=== PATIENT | male | born 1945 | race Caucasian/White ===

== ENCOUNTER 2019-06-29 04:38 | Emergency (ER) | payer MEDICARE, OTHER ==
[~2019-06-29] VITALS: Ht 162.6 cm; Wt 54.4 kg
--- NOTE | 2019-06-29 04:53 | PHYS DOC ---
Past History Additional Past Medical Histor: rheumatic fever (DAVID CHINO DO) Additional Past Surgical Histo: cochlear implants (DAVID CHINO DO) Smoking: Non-smoker Alcohol Use: Occasionally Drug Use: None (DAVID CHINO DO) Adult General Chief Complaint Chief Complaint: [facility] HPI Patient is a 74-year-old male who presents to the ER with complaint of diarrhea and vomiting. The patient is concerned because he recently traveled to [facility]. He denies cough or fever or respiratory symptoms. No medications taken prior to arrival. (CHIN KELLY DO) Review of Systems Review of Systems All other ROS is negative unless otherwise stated in HPI (CHIN KELLY DO) Physical Exam Physical Exam See above Constitutional: Well developed, well nourished, vomited once in the emergency department, non-toxic appearance. [] HENT: Normocephalic, atraumatic, bilateral external ears normal, oropharynx moist, no oral exudates, nose normal. [] Eyes: PERRLA, EOMI, conjunctiva normal, no discharge. [] Neck: Normal range of motion, no tenderness, supple, no stridor. [] Cardiovascular:Heart rate regular rhythm, no murmur [] Lungs & Thorax: Bilateral breath sounds clear to auscultation [] Abdomen: Bowel sounds normal, soft, no tenderness, no masses, no pulsatile masses. [] Skin: Warm, dry, no erythema, no rash. [] Back: No tenderness, no CVA tenderness. [] Extremities: No tenderness, no cyanosis, no clubbing, ROM intact, no edema. [] Neurologic: Alert and oriented X 3, normal motor function, normal sensory function, no focal deficits noted. [] Psychologic: Affect normal, judgement normal, mood normal. [] (CHIN KELLY DO) Physical Exam Constitutional: Well developed, well nourished, no acute distress, non-toxic appearance HENT: Normocephalic, atraumatic, oropharynx moist Eyes: Conjunctiva normal, no discharge Neck: Normal range of motion, supple Lungs & Thorax: No respiratory distress Abdomen: Soft, no tenderness, no guarding/rebound tenderness/distention Skin: Warm, dry, no erythema, no rash Extremities: No tenderness, ROM intact Neurologic: Alert and oriented X 3, no focal deficits noted Psychologic: Affect normal, judgment normal (DAVID CHINO DO) EKG EKG [] (CHIN KELLY DO) Radiology/Procedures Radiology/Procedures [] (CHIN KELLY DO) Course & Med Decision Making Course & Med Decision Making Pertinent Labs and Imaging studies reviewed. (See chart for details) Patient seen for diarrhea and vomiting. He does not appear overtly dehydrated. We'll order Zofran and influenza screen. 0600: Transition care to Dr. Chino. Flu pending. (CHIN KELLY DO) Course & Med Decision Making 0600- Sign out received from Dr. Kelly for patient with hx of diarrhea. There was concern for possible influenza. Rapid influenza pending. Patient seen and evaluated by myself. No peritoneal signs. No significant signs of dehydration. Rapid influenza negative. Patient stable for discharge with outpatient follow-up with PCP. Discussed findings and plan with patient and family, who acknowledge understanding and agreement. (DAVID CHINO DO) Dragon Disclaimer Dragon Disclaimer This electronic medical record was generated, in whole or in part, using a voice recognition dictation system. (CHIN KELLY DO) Departure Departure: Impression: Primary Impression: Diarrhea Disposition: 01 HOME, SELF-CARE Condition: STABLE Referrals: EZIO NEWTON MD (PCP) Patient Instructions: Diarrhea, [id number], Diet for Diarrhea, Adult Additional Instructions: Increase fluid hydration. Keep diet very bland. May increased in foods that naturally form stool together. BRAT diet (bananas, rice, applesauce, toast) Problem Qualifiers Primary Impression: Diarrhea Diarrhea type: unspecified type Qualified Codes: R19.7 - Diarrhea, unspecified CHIN KELLY DO Jun 29, 2019 04:53 DAVID CHINO DO Jun 29, 2019 06:53
[2019-06-29] MEDS ORDERED: ONDANSETRON ODT 4 MG TAB.RAPDIS PO ONE (05:00)
[2019-06-29] MEDS ORDERED: ACETAMINOPHEN 325 MG TABLET PO ONE (05:15)
[2019-06-29 06:12] LABS: INFLUENZA A PATIENT NEGATIVE (NEGATIVE); INFLUENZA B PATIENT NEGATIVE (NEGATIVE)
[2019-06-29 06:30] VITALS: BP 100/48
== END 2019-06-29 07:03 | disposition home or self-care (01) ==
LOC: ER 04:38
DX: R19.7 Diarrhea, unspecified (principal); R11.10 Vomiting, unspecified
CPT/HCPCS: 87804; 99283; Q0162